=== PATIENT | female | born 1980 | race American Indian/Alaskan Native ===

== ENCOUNTER 2018-10-07 17:05 | Emergency (ER) | payer OTHER, MEDICAID ==
--- NOTE | 2018-10-07 17:14 | Event Note ---
ED Screening Note ED Screening Note: lmp August 24 [id number] vag bleeding in preg This initial assessment/diagnostic orders/clinical plan/treatment(s) is/are subject to change based on patients health status, clinical progression and re- assessment by fellow clinical providers in the ED. Further treatment and workup at subsequent clinical providers discretion. Patient/guardian urged not to elope from the ED as their condition may be serious if not clinically assessed and managed. Initial orders include: ayesha BRADLEY
[2018-10-07 17:15] VITALS: BP 110/71
[2018-10-07 18:21] LABS: Bacteria,Urine 1+ /HPF (Negative); Bilirubin,Urine NEG (Negative); Blood,Urine MOD (Negative); Color,Urine Colorless (Yellow); Protein,Urine <15 mg/dL mg/dL (Negative); Urobilinogen,Urine < 2.0 mg/dL (<2.0)
--- NOTE | 2018-10-07 18:31 | Ultrasound Report ---
Transabdominal and transvaginal pelvic ultrasound INDICATION / CLINICAL INFORMATION: Vaginal bleeding. COMPARISON: None available. FINDINGS: TRANSABDOMINAL: The uterus measures 10.1 x 5.0 x 7.0 cm. The endometrial stripe measures 1.1 cm AP. N o fibroids are seen. The right ovary measures 4.2 x 2.7 x 3.9 cm and the left ovary 3.6 x 2.3 x 2.8 c m. I see no evidence of adnexal mass or free fluid. The urinary bladder is not well seen. TRANSVAGINAL: The endometrial stripe measures 1.6 cm AP. There is a small nabothian cyst in the cervi x measuring less than 1 cm. No fibroids are seen. The left ovary measures 2.6 x 2.3 x 1.8 cm and demonstrates normal blood flow on Doppler exam. The ri ght ovary measures 3.0 x 2.9 x 2.5 cm and contains a 2.1 cm corpus luteal cyst. There is normal blood flow to the right ovary on Doppler exam. There is a small amount of free fluid in the cul-de-sac. IMPRESSION: 2.1 cm corpus luteal cyst in the right ovary and mild associated free fluid in the cul-de -sac are physiologic findings.. Signer Name: Stefan Head MD Signed: 10/07/2018 6:27 PM Workstation Name: [id number]
[2018-10-07 18:52] LABS: Basophils # (Auto) 0.1 K/mm3 (0.0-0.1); Basophils % (Auto) 0.4 % (0.0-1.8); Eosinophils # (Auto) 0.1 K/mm3 (0.0-0.4); Eosinophils % (Auto) 0.7 % (0.0-4.3); Hematocrit 36.5 % (30.3-42.9); Hemoglobin 11.6 gm/dl (10.1-14.3); Lymphocytes # (Auto) 2.9 K/mm3 (1.2-5.4); Lymphocytes % (Auto) 20.5 % (13.4-35.0); Mean Corpuscular HGB Conc 32 % (30-34); Monocytes # (Auto) 0.7 K/mm3 (0.0-0.8); Monocytes % (Auto) 4.7 % (0.0-7.3); Platelet Count 392 K/mm3 (140-440); Red Blood Count 5.37 M/mm3 (3.65-5.03)
[2018-10-07 18:54] LABS: Mean Corpuscular Volume 68 fl (79-97)
[2018-10-07 19:09] LABS: BUN/Creatinine Ratio 12; Blood Urea Nitrogen 7 mg/dL (7-17); Calcium 9.4 mg/dL (8.4-10.2); Hemolysis Index 0
--- NOTE | 2018-10-07 19:19 | Emergency Department Report ---
ED HPI - General Chief complaint: Vaginal Bleeding Stated complaint: POSS /BLEEDING Time Seen by Provider: 10/07/18 17:13 Source: patient Mode of arrival: Ambulatory Limitations: No Limitations - History of Present Illness Initial comments: Patient is a 37-year-old female presents to the emergency room with complaints of vaginal spotting that began 3 days ago. She states that she is currently . She states her last menstrual cycle was August 24. She states she took at home test which was positive. she states she then went to her primary care doctor and had another urine test which was positive. she has not yet seen an DOWN FILLER. She does not report any vaginal discharge or vaginal complaints. denies any abdominal pain, nausea, vomiting, diarrhea, fever, dysuria. She denies any past medical history or allergies to medications. - Related Data Allergies Allergy/AdvReac Type Severity Reaction Status Date / Time No Known Allergies Allergy Unverified 10/07/18 17:08 ED Review of Systems ROS: Stated complaint: POSS /BLEEDING Other details as noted in HPI Comment: All other systems reviewed and negative ED Past Medical Hx - Past Medical History Previous Medical History?: No - Surgical History Past Surgical History?: Yes Additional Surgical History: C sections - Social History Smoking Status: Never Smoker Substance Use Type: None ED Physical Exam - General Limitations: No Limitations General appearance: alert, in no apparent distress - Head Head exam: Present: atraumatic, normocephalic - Eye Eye exam: Present: normal appearance - ENT ENT exam: Present: mucous membranes moist - Respiratory Respiratory exam: Present: normal lung sounds bilaterally. Absent: respiratory distress, wheezes, rales, rhonchi, stridor, accessory muscle use, decreased breath sounds, prolonged expiratory - Cardiovascular Cardiovascular Exam: Present: regular rate, normal rhythm, normal heart sounds. Absent: systolic murmur, diastolic murmur, rubs, gallop - GI/Abdominal GI/Abdominal exam: Present: soft, normal bowel sounds. Absent: distended, tenderness, guarding, rebound, rigid - Back Exam Back exam: Absent: CVA tenderness (R), CVA tenderness (L) - Neurological Exam Neurological exam: Present: alert, oriented X3 - Psychiatric Psychiatric exam: Present: normal affect, normal mood - Skin Skin exam: Present: warm, dry, intact ED Course Vital Signs 10/07/18 10/07/18 17:13 20:04 Temperature 98.5 F Pulse Rate 97 H Respiratory 18 16 Rate Blood Pressure 110/71 O2 Sat by Pulse 99 100 Oximetry ED Medical Decision Making - Lab Data Result diagrams: 10/07/18 18:33 10/07/18 18:33 Lab Results 10/07/18 10/07/18 10/07/18 Range/Units 17:48 18:33 18:33 WBC 14.2 H (4.5-11.0) K/mm3 RBC 5.37 H (3.65-5.03) M/mm3 Hgb 11.6 (10.1-14.3) gm/dl Hct 36.5 (30.3-42.9) % MCV 68 L (79-97) fl MCH 22 L (28-32) pg MCHC 32 (30-34) % RDW 17.0 H (13.2-15.2) % Plt Count 392 (140-440) K/mm3 Lymph % (Auto) 20.5 (13.4-35.0) % [place] % (Auto) 4.7 (0.0-7.3) % Eos % (Auto) 0.7 (0.0-4.3) % Baso % (Auto) 0.4 (0.0-1.8) % Lymph # 2.9 (1.2-5.4) K/mm3 [place] # 0.7 (0.0-0.8) K/mm3 Eos # 0.1 (0.0-0.4) K/mm3 Baso # 0.1 (0.0-0.1) K/mm3 Seg Neutrophils % 73.7 H (40.0-70.0) % Seg Neutrophils # 10.5 H (1.8-7.7) K/mm3 Sodium 137 (137-145) mmol/L Potassium 4.0 (3.6-5.0) mmol/L Chloride 100.2 (98-107) mmol/L Carbon Dioxide 24 (22-30) mmol/L Anion Gap 17 mmol/L BUN 7 (7-17) mg/dL Creatinine 0.6 L (0.7-1.2) mg/dL Estimated GFR > 60 ml/min BUN/Creatinine Ratio 12 % Glucose 125 H (65-100) mg/dL Calcium 9.4 (8.4-10.2) mg/dL HCG, Quant (0-4) mIU/mL Urine Color Colorless (Yellow) Urine Turbidity Clear (Clear) Urine pH 6.0 (5.0-7.0) Ur Specific [place] 1.004 (1.003-1.030) Urine Protein <15 mg/dl (Negative) mg/dL Urine Glucose (UA) Neg (Negative) mg/dL Urine Ketones Neg (Negative) mg/dL Urine Blood Mod (Negative) Urine Nitrite Neg (Negative) Urine Bilirubin Neg (Negative) Urine Urobilinogen < 2.0 (<2.0) mg/dL Ur Leukocyte Esterase Neg (Negative) Urine WBC (Auto) 1.0 (0.0-6.0) /HPF Urine RBC (Auto) 1.0 (0.0-6.0) /HPF U Epithel Cells (Auto) 1.0 (0-13.0) /HPF Urine Bacteria (Auto) 1+ (Negative) /HPF Blood Type Ord Rhogam Gestat Weeks WEEKS 10/07/18 10/07/18 Range/Units 18:33 18:33 WBC (4.5-11.0) K/mm3 RBC (3.65-5.03) M/mm3 Hgb (10.1-14.3) gm/dl Hct (30.3-42.9) % MCV (79-97) fl MCH (28-32) pg MCHC (30-34) % RDW (13.2-15.2) % Plt Count (140-440) K/mm3 Lymph % (Auto) (13.4-35.0) % [place] % (Auto) (0.0-7.3) % Eos % (Auto) (0.0-4.3) % Baso % (Auto) (0.0-1.8) % Lymph # (1.2-5.4) K/mm3 [place] # (0.0-0.8) K/mm3 Eos # (0.0-0.4) K/mm3 Baso # (0.0-0.1) K/mm3 Seg Neutrophils % (40.0-70.0) % Seg Neutrophils # (1.8-7.7) K/mm3 Sodium (137-145) mmol/L Potassium (3.6-5.0) mmol/L Chloride (98-107) mmol/L Carbon Dioxide (22-30) mmol/L Anion Gap mmol/L BUN (7-17) mg/dL Creatinine (0.7-1.2) mg/dL Estimated GFR ml/min BUN/Creatinine Ratio % Glucose (65-100) mg/dL Calcium (8.4-10.2) mg/dL HCG, Quant 3289 H (0-4) mIU/mL Urine Color (Yellow) Urine Turbidity (Clear) Urine pH (5.0-7.0) Ur Specific [place] (1.003-1.030) Urine Protein (Negative) mg/dL Urine Glucose (UA) (Negative) mg/dL Urine Ketones (Negative) mg/dL Urine Blood (Negative) Urine Nitrite (Negative) Urine Bilirubin (Negative) Urine Urobilinogen (<2.0) mg/dL Ur Leukocyte Esterase (Negative) Urine WBC (Auto) (0.0-6.0) /HPF Urine RBC (Auto) (0.0-6.0) /HPF U Epithel Cells (Auto) (0-13.0) /HPF Urine Bacteria (Auto) (Negative) /HPF Blood Type O POSITIVE Ord Rhogam Gestat Weeks Rh pos WEEKS - Radiology Data Radiology results: report reviewed Transabdominal and transvaginal pelvic ultrasound INDICATION / CLINICAL INFORMATION: Vaginal bleeding. COMPARISON: None available. FINDINGS: TRANSABDOMINAL: The uterus measures 10.1 x 5.0 x 7.0 cm. The endometrial stripe measures 1.1 cm AP. No fibroids are seen. The right ovary measures 4.2 x 2.7 x 3.9 cm and the left ovary 3.6 x 2.3 x 2.8 cm. I see no evidence of adnexal mass or free fluid. The urinary bladder is not well seen. TRANSVAGINAL: The endometrial stripe measures 1.6 cm AP. There is a small nabothian cyst in the cervix measuring less than 1 cm. No fibroids are seen. The left ovary measures 2.6 x 2.3 x 1.8 cm and demonstrates normal blood flow on Doppler exam. The right ovary measures 3.0 x 2.9 x 2.5 cm and contains a 2.1 cm corpus luteal cyst. There is normal blood flow to the right ovary on Doppler exam. There is a small amount of free fluid in the cul-de-sac. IMPRESSION: 2.1 cm corpus luteal cyst in the right ovary and mild associated free fluid in the cul-de-sac are physiologic findings.. Signer Name: Stefan Head MD Signed: 10/07/2018 6:27 PM Workstation Name: [id number] Transcribed By: RT Dictated By: Stefan Head MD Electronically Authenticated By: Stefan Head MD Signed Date/Time: 10/07/18 8667 - Medical Decision Making Patient is a 37-year-old female presents to the emergency room with complaints of vaginal spotting that began 3 days ago. She states that she is currently pr egnant. She states her last menstrual cycle was August 24. She states she took at home test which was positive. she states she then went to her primary care doctor and had another urine test which was positive. she has not yet seen an DOWN FILLER. She does not report any vaginal discharge or vaginal complaints. denies any abdominal pain, nausea, vomiting, diarrhea, fever, dysuria. She tao es any past medical history or allergies to medications. vitals are normal. no abd tenderness on exam. hcg quant is 3289. pt is Rh positive. UA without evidence of UTI. glucose and WBC mildly elevated. pelvic and transvaginal US: 2.1 cm corpus luteal cyst in the right ovary and mild associated free fluid in the cul-de-sac are physiologic findings. spoke with the radiologist, no IUP, no ectopic identified, beta hcg is low, could be early vs spontaneous . discussed threatened miscarriage with patient. advised that she will need to have a repeat beta hCG Quant in the next 2-3 days. may have this completed at your primary care, [facility], or return to the emergency room. today your beta hcg quant is 3289. Please follow up with an DOWN FILLER in the next 2-3 days. Return to the emergency room for any new or worsening symptoms. - Differential Diagnosis IUP, hemorrhagic cyst, UTI, sponateous , threatened Critical care attestation.: If time is entered above; I have spent that time in minutes in the direct care of this critically ill patient, excluding procedure time. ED Disposition Clinical Impression: Threatened miscarriage Disposition: DC- TO HOME OR SELFCARE Is pt being admited?: No Does the pt Need Aspirin: No Condition: Stable Instructions: Threatened Miscarriage (ED) Additional Instructions: you will need to have a repeat beta hCG Quant in the next 2-3 days. may have this completed at your primary care, [facility], or return to the emergency room. today your beta hcg quant is 3289. Please follow up with an DOWN FILLER in the next 2-3 days. Return to the emergency room for any new or worsening symptoms. Referrals: MARIAA MTZ MD [Primary Care Provider] - 2-3 Days [facility] [Provider Group] - 2-3 Days [facility] [Provider Group] - 2-3 Days [facility] [Provider Group] - 2-3 Days Time of Disposition: 19:40 Print Language: BENGALI
== END 2018-10-07 20:06 | disposition home or self-care (01) ==
LOC: ED 17:05
DX: O20.0 Threatened abortion (principal); Z3A.01 Less than 8 weeks gestation of pregnancy
CPT/HCPCS: 36415; 76830; 76856; 80048; 81001; 84702; 85025; 86900; 86901; 96372

== ENCOUNTER 2018-10-08 10:08 | Emergency (ER) | payer OTHER, MEDICAID ==
--- NOTE | 2018-10-08 11:19 | Emergency Department Report ---
ED HPI - General Chief complaint: Vaginal Bleeding Stated complaint: /BLEEDING Time Seen by Provider: 10/08/18 10:52 Source: patient, old records reviewed Mode of arrival: Ambulatory Limitations: No Limitations - History of Present Illness Initial comments: 37-year-old female presents to the hospital with vaginal bleeding and . LMP 08/24/18 and pt 6weeks and 3 days) based on dates. This is her 6th , she has 3 children, history of 2 abortions. She denies previous ectopic or miscarriages. Patient was seen here yesterday for vaginal spotting. Patient had an hCG quantitative 06686, blood type O+, and history of present ultrasound showing a right corpus luteum cyst but no IUP. Patient states this morning she had increased bleeding. She has used 2 pads this a.m. No clots reported. No pain, lightheadedness, or dizziness reported. Has not yet started treatment with a [facility] doctor. - Related Data Allergies Allergy/AdvReac Type Severity Reaction Status Date / Time No Known Allergies Allergy Verified 10/08/18 10:12 ED Review of Systems ROS: Stated complaint: /BLEEDING Other details as noted in HPI Comment: All other systems reviewed and negative ED Past Medical Hx - Past Medical History Previous Medical History?: No - Surgical History Additional Surgical History: C sections x 3 - Social History Smoking Status: Never Smoker Substance Use Type: None ED Physical Exam - General Limitations: No Limitations - Other Other exam information: General: No acute distress Eyes: Normal appearance, pupils equal reactive to light, extraocular movements intact ENT: Normal oropharynx Neck: Normal appearance, no C-spine tenderness, no meningismus Chest: Clear to auscultation bilaterally, no wheezes, rales, or crackles Cardiovascular: Regular rate and rhythm Abdomen: Soft, nondistended, nontender, no rebound or guarding, normal bowel sounds Back: Normal inspection, nontender Extremity: Normal inspection, no deformity, full range of motion Neuro: Alert and oriented 3, speech clear, no gross motor or sensory deficit Skin: No rash, warmth, or erythema ED Course Vital Signs 10/08/18 11:14 Respiratory 18 Rate O2 Sat by Pulse 99 Oximetry ED Medical Decision Making - Lab Data Result diagrams: 10/08/18 11:05 Lab Results 10/08/18 10/08/18 Range/Units 11:05 11:05 WBC 12.4 H (4.5-11.0) K/mm3 RBC 5.28 H (3.65-5.03) M/mm3 Hgb 11.5 (10.1-14.3) gm/dl Hct 35.9 (30.3-42.9) % MCV 68 L (79-97) fl MCH 22 L (28-32) pg MCHC 32 (30-34) % RDW 17.0 H (13.2-15.2) % Plt Count 359 (140-440) K/mm3 Lymph % (Auto) 16.4 (13.4-35.0) % [place] % (Auto) 5.3 (0.0-7.3) % Eos % (Auto) 0.7 (0.0-4.3) % Baso % (Auto) 0.4 (0.0-1.8) % Lymph # 2.0 (1.2-5.4) K/mm3 [place] # 0.7 (0.0-0.8) K/mm3 Eos # 0.1 (0.0-0.4) K/mm3 Baso # 0.1 (0.0-0.1) K/mm3 Seg Neutrophils % 77.2 H (40.0-70.0) % Seg Neutrophils # 9.6 H (1.8-7.7) K/mm3 HCG, Quant 3214 H (0-4) mIU/mL - Medical Decision Making I suspect the patient is having a miscarriage given increased vaginal bleeding, likely IUP on ultrasound, and a drop in hCG compared to yesterday. Repeat hCG has been performed within 24 hours from initial value. Patient informs is likely having a miscarriage but needs follow-up for confirmation of this diagnosis. H&H stable. RhoGAM not required - Differential Diagnosis threatened miscarriage, ectopic, miscarriage, anemia Critical Care Time: No Critical care attestation.: If time is entered above; I have spent that time in minutes in the direct care of this critically ill patient, excluding procedure time. ED Disposition Clinical Impression: Threatened miscarriage Disposition: DC-01 TO HOME OR SELFCARE Is pt being admited?: No Does the pt Need Aspirin: No Condition: Stable Instructions: Threatened Miscarriage (ED), Spontaneous Miscarriage (ED) Additional Instructions: Your beta hCG hormone (baby hormone) is decreasing compared to yesterday's value. This was repeated less tahn 24 hours after initial value. It is likely that you are having a miscarriage however, you need follow-up in 2 days for repeat value to trend this level. If bhcg level continues to drop then miscarriage is confirmed. If this level increases that this is suggestive of continued baby growth. Please return if you develop vaginal bleeding greater than pad per hour, significant pain, or lightheadedness. Take Tylenol as needed for pain. Return if symptoms worsen as indicated by your discharge instructions. Referrals: KIET LARSEN MD [Staff Physician] - 2-3 Days (installer interior assemblies ) Time of Disposition: 12:49
[2018-10-08 12:19] LABS: Basophils # (Auto) 0.1 K/mm3 (0.0-0.1); Basophils % (Auto) 0.4 % (0.0-1.8); Eosinophils # (Auto) 0.1 K/mm3 (0.0-0.4); Eosinophils % (Auto) 0.7 % (0.0-4.3); Hematocrit 35.9 % (30.3-42.9); Hemoglobin 11.5 gm/dl (10.1-14.3); Lymphocytes % (Auto) 16.4 % (13.4-35.0); Mean Corpuscular HGB Conc 32 % (30-34); Monocytes # (Auto) 0.7 K/mm3 (0.0-0.8); Monocytes % (Auto) 5.3 % (0.0-7.3); Platelet Count 359 K/mm3 (140-440); Red Blood Count 5.28 M/mm3 (3.65-5.03)
[2018-10-08 12:25] LABS: Mean Corpuscular Volume 68 fl (79-97)
[2018-10-08 14:24] VITALS: BP 138/76
== END 2018-10-08 13:24 | disposition home or self-care (01) ==
LOC: ED 10:08
DX: O20.0 Threatened abortion (principal); Z3A.01 Less than 8 weeks gestation of pregnancy
CPT/HCPCS: 36415; 84702; 85025